=== PATIENT | male | born 1955 | race Caucasian/White ===

== ENCOUNTER → 2020-11-16 | Outpatient (CLI) | payer BC ==
[~2020-11-16] MED LIST: CALC625T PO; DOCU-131 PO; FINA5TAB4 PO; LOSA25TA25 PO; MULT-658 PO; OMEG-124 PO; TAMS-11 PO
[2020-11-16 15:19] LABS: ALANINE AMINOTRANSFERASE 134 U/L (12-78); ALBUMIN 4.1 g/dL (3.4-5.0); ANION GAP 4 mmol/L (5-15); CALCIUM 9.2 mg/dL (8.5-10.1); CHLORIDE 106 mmol/L (98-107); CREATININE 1.11 mg/dL (0.7-1.3)
[2020-11-16 15:21] LABS: ALKALINE PHOSPHATASE 64 U/L (45-117); BILIRUBIN,TOTAL 0.8 mg/dL (0.2-1.0); TOTAL PROTEIN 8.2 g/dL (6.4-8.2)
== END | disposition home or self-care (01) ==
LOC: STAR 14:11
PROVIDERS: ATTEND Internal Medicine Geriatric Medicine
DX: Z01.810 Encounter for preprocedural cardiovascular examination (principal); K56.699 Other intestinal obstruction unspecified as to partial versus complete obstruction; Z20.822 Contact with and (suspected) exposure to COVID-19
CPT/HCPCS: 36415; 80053; 93005; U0003

== ENCOUNTER 2020-11-21 07:01 | Day surgery (SDC) | payer BC ==
[~2020-11-21] VITALS: Ht 188 cm; Wt 109.6 kg
[2020-11-21] MEDS ORDERED: MIDAZOLAM 1 MG/ML, 2ML ONE (07:39)
[2020-11-21] MEDS ORDERED: FENTANYL PF 250 MCG/5ML ONE (07:40)
[2020-11-21 07:51] VITALS: BP 124/87
[2020-11-21] MEDS ORDERED: PROMETHAZINE 25 MG/ML, 1ML IVPush PRN (08:00)
[2020-11-21] MEDS ORDERED: HALOPERIDOL 5 MG/ML IV PRN (08:00)
[2020-11-21] MEDS ORDERED: KETOROLAC 30 MG/1 ML IV PRN (08:00)
[2020-11-21] MEDS ORDERED: CHLORHEXIDINE 15 ML UDC PO ONE (08:00)
[2020-11-21] MEDS ORDERED: FENTANYL PF 100 MCG/2ML IV PRN (08:00)
[2020-11-21] MEDS ORDERED: METOCLOPRAMIDE 5 MG/ML, 2ML IVPush PRN (08:00)
[2020-11-21] MEDS ORDERED: EPHEDRINE 50 MG/ML, 1ML IVPush PRN (08:00)
[2020-11-21] MEDS ORDERED: ACETAMINOPHEN 325 MG TABLET PO PRN (08:00)
[2020-11-21] MEDS ORDERED: OXYcodone 5 MG/5 ML ORAL.SOL UDC PO PRN (08:00)
[2020-11-21] MEDS ORDERED: METOPROLOL 1 MG/ML, 5ML IV PRN (08:00)
[2020-11-21] MEDS ORDERED: hydrALAzine 20 MG/ML, 1ML IV PRN (08:00)
[2020-11-21] MEDS ORDERED: DIAZEPAM 5 MG/ML, 2ML IVPush PRN (08:00)
[2020-11-21] MEDS ORDERED: DIPHENHYDRAMINE 50 MG/ML, 1ML IVPush PRN (08:00)
[2020-11-21] MEDS ORDERED: LACTATED RINGERS 1,000 ML IV SCH (08:00)
[2020-11-21] MEDS ORDERED: HYDROmorphone 1 MG/ML, 1ML INJ IVPush PRN (08:00)
[2020-11-21] MEDS ORDERED: LABETALOL 5MG/ML, 20ML IV PRN (08:00)
[2020-11-21] MEDS ORDERED: ONDANSETRON 2MG/ML, 2ML IVPush PRN (08:00)
[2020-11-21] MEDS ORDERED: PHENYLEPHRINE 10 MG/ML ONE (09:06)
[2020-11-21] MEDS ORDERED: ROCURONIUM 10 MG/ML,10ML ONE (09:06)
[2020-11-21] MEDS ORDERED: ONDANSETRON 2MG/ML, 2ML ONE (09:06)
[2020-11-21] MEDS ORDERED: PROPOFOL 10 MG/ML, 20ML ONE (09:06)
[2020-11-21] MEDS ORDERED: DEXAMETHASONE 4 MG/ML, 1ML ONE (09:06)
[2020-11-21] MEDS ORDERED: SUCCINYLCHOLINE 20 MG/ML, 10ML ONE (09:06)
== END 2020-11-21 12:15 | disposition home or self-care (01) ==
LOC: OUT 07:01
PROVIDERS: ATTEND Internal Medicine Geriatric Medicine
DX: K91.89 Other postprocedural complications and disorders of digestive system (principal); K56.609 Unspecified intestinal obstruction, unspecified as to partial versus complete obstruction; K21.9 Gastro-esophageal reflux disease without esophagitis; I10 Essential (primary) hypertension; J45.909 Unspecified asthma, uncomplicated; N40.0 Benign prostatic hyperplasia without lower urinary tract symptoms; Z79.82 Long term (current) use of aspirin; Z79.899 Other long term (current) drug therapy; Z91.041 Radiographic dye allergy status; Z91.011 Allergy to milk products; Z83.3 Family history of diabetes mellitus; Z82.49 Family history of ischemic heart disease and other diseases of the circulatory system; Z80.8 Family history of malignant neoplasm of other organs or systems
CPT/HCPCS: 44376; A4648; C1725; J0330; J1100; J2250; J2370; J2405; J2704; J3010; J7120